=== PATIENT | female | born 1975 | race Caucasian/White ===

== ENCOUNTER 2018-02-11 21:09 | Emergency (ER) | payer MEDICARE, OTHER ==
[~2018-02-11] VITALS: Ht 177.8 cm; Wt 65.0 kg
[2018-02-12 00:19] VITALS: BP 138/63; PULSE 86; RESP 20; TEMP 98.5; O2SAT 98
--- NOTE | 2018-02-12 02:13 | RADRPT ---
EXAM DATE: 02/12/2018 2:05 AM EDT AGE/SEX: 42 years / Female INDICATIONS: Trauma due to fall. CLINICAL DATA: This is the patient's initial encounter. Patient reports that signs and symptoms have been present for 1 day and indicates a pain score of 4/10. MEDICAL/SURGICAL HISTORY: . Cardiovascular disease. Lupus. SSA antibody. Sjogren's. . Mandible . Intestinal. Cochlear implant. COMPARISON: No prior exams available for comparison. FINDINGS: The vertebral bodies are in normal alignment without evidence of compression deformity Bone density is normal for age. Soft tissues are grossly intact. Surgical hardware is seen in the right mandibula r condyle. CONCLUSION: Negative cervical spine series. Electronically signed by: Devon Acosta MD 02/12/2018 2:12 AM EDT
--- NOTE | 2018-02-12 02:17 | RADRPT ---
EXAM DATE: 02/12/2018 2:02 AM EDT AGE/SEX: 42 years / Female INDICATIONS: Trauma due to fall. CLINICAL DATA: This is the patient's initial encounter. Patient reports that signs and symptoms have been present for 1 day and indicates a pain score of 7/10. MEDICAL/SURGICAL HISTORY: Cardiovascular disease. Lupus. Sjogren's antibody. . Mandible. Inte stinal. Cochlear implant. COMPARISON: No prior exams available for comparison. FINDINGS: The vertebral bodies are in normal alignment in the sagittal plane without evidence of compression de formity. There is a minimal levocurvature of the lumbar spine. Bone density is normal for age. Soft tissues are grossly intact. Clips are seen in the right quadrant. There also appears to be a clip in the superior medial right pelvis. CONCLUSION: No acute abnormality seen. Electronically signed by: Devon Acosta MD 02/12/2018 2:16 AM EDT
--- NOTE | 2018-02-12 02:18 | RADRPT ---
EXAM DATE: 02/12/2018 2:06 AM EDT AGE/SEX: 42 years / Female INDICATIONS: Trauma due to fall. CLINICAL DATA: This is the patient's initial encounter. Patient reports that signs and symptoms have been present for 1 day and indicates a pain score of 9/10. MEDICAL/SURGICAL HISTORY: . Cardiovascular disease. Lupus. SSA antibody. Sjogren's. . Mandible . Intestinal. Cochlear implant. COMPARISON: No prior exams available for comparison. FINDINGS: Bony structures are intact and in normal alignment. Joints are intact without dislocation or signifi cant arthropathy. Osseous density is normal. Soft tissues are unremarkable. No radiopaque foreign bodies seen. CONCLUSION: Negative right hip series. Electronically signed by: Devon Acosta MD 02/12/2018 2:17 AM EDT
[2018-02-12] MEDS ORDERED: KETOROLAC TROMETHAMINE 30 MG/ML (IVP) VIAL IV PUSH ONE (03:15)
[2018-02-12] MEDS ORDERED: MORPHINE SULFATE 4 MG/ML INJ IV PUSH ONE (03:15)
[2018-02-12] MEDS ORDERED: MORPHINE SULFATE 2 MG/ML SYRINGE IV PUSH ONE (03:15)
--- NOTE | 2018-02-12 03:24 | PD ---
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 Pain is a pressure and burning in her sacral area , no radiation no migration of pain , there is no obvious hematoma and PT HAS A separate pain that is a spasm-like pain around her shoulders to paracervical PFSH Past Medical History Autoimmune Disease: Yes (LUPUS) Hypertension: Yes Medical other: Yes (VASCULAR REFLUX) Influenza Vaccination: No ?: Not : 0 Past Surgical History Appendectomy: Yes Cholecystectomy: Yes Other Surgery: Yes Social History Alcohol Use: No Tobacco Use: Yes Substance Use: No Allergies-Medications (Allergen,Severity, Reaction): Coded Allergies: Penicillins (Verified Allergy, Unknown, 02/12/18) Reported Meds & Prescriptions Reported Meds & Active Scripts Active Tramadol (Tramadol HCl) 50 Mg Tab 50 Mg PO Q6H PRN Ibuprofen 600 Mg Tab 600 Mg PO Q6H PRN Review of Systems Except as stated in HPI: all other systems reviewed are Neg Physical Exam Narrative GENERAL: hyperpigmented facial rash SKIN: Warm and dry. HEAD: Atraumatic. Normocephalic. EYES: Pupils equal and round. No scleral icterus. No injection or drainage. ENT: No nasal bleeding or discharge. Mucous membranes pink and moist. NECK: Trachea midline. No JVD. CARDIOVASCULAR: Regular rate and rhythm. RESPIRATORY: No accessory muscle use. Clear to auscultation. Breath sounds equal bilaterally. GASTROINTESTINAL: Abdomen soft, non-tender, nondistended. Hepatic and splenic margins not palpable. MUSCULOSKELETAL: Extremities without clubbing, cyanosis, or edema. No obvious deformities. NEUROLOGICAL: Awake and alert. No obvious cranial nerve deficits. Motor grossly within normal limits. Five out of 5 muscle strength in the arms and legs. Normal speech. PSYCHIATRIC: Appropriate mood and affect; insight and judgment normal. Data Data Last Documented VS Vital Signs Date Time Temp Pulse Resp B/P (MAP) Pulse Ox O2 Delivery O2 Flow Rate FiO2 02/12/18 00:19 98.5 86 20 138/63 (88) 98 Orders Orders Spine, Lumbar - Ltd (Ap & Lat) (02/12/18 ) Hip, Uni(Ap&Lat) Wo Ap Pelvis (02/12/18 ) Spine, Cervical Compl([id number]) (02/12/18 ) Ketorolac Inj (Toradol Inj) (02/12/18 03:15) Morphine Inj (Morphine Inj) (02/12/18 03:15) Morphine Inj (Morphine Inj) (02/12/18 03:15) Ed Discharge Order (02/12/18 03:22) [facility] Medical Decision Making Medical Screen Exam Complete: Yes Emergency Medical Condition: Yes Medical Record Reviewed: Yes Differential Diagnosis fall trauma to sacrum to contusion vs fracture and shoulder aching from thoraicic area spasm as well vs lupus flare of muscle aches Narrative Course toradol and xrays and negative imaging and Rx for muscle spasms and d/ c follow up outpt Diagnosis Primary Impression: Sacral contusion Qualified Codes: S30.0XXA - Contusion of lower back and pelvis, initial encounter Patient Instructions: Contusion in Adults (ED), General Instructions Scripts Tramadol (Tramadol) 50 Mg Tab 50 MG PO Q6H Y for PAIN, #10 TAB 0 Refills Prov: Cedrick Cifuentes MD 02/12/18 Ibuprofen (Ibuprofen) 600 Mg Tab 600 MG PO Q6H Y for Pain/Inflammation, #40 TAB 0 Refills Prov: Cedrick Cifuentes MD 02/12/18 Disposition: 01 DISCHARGE HOME Condition: Good Cedrick Cifuentes MD Feb 12, 2018 03:24
[2018-02-12] MEDS ORDERED: IBUP-232 PO (03:31)
[2018-02-12] MEDS ORDERED: TRAM50TA PO (03:32)
== END 2018-02-12 03:50 | disposition home or self-care (01) ==
LOC: NEPE 21:09
DX: S30.0XXA Contusion of lower back and pelvis, initial encounter (principal); M32.9 Systemic lupus erythematosus, unspecified; I10 Essential (primary) hypertension; W01.0XXA Fall on same level from slipping, tripping and stumbling without subsequent striking against object, initial encounter; Y92.59 Other trade areas as the place of occurrence of the external cause; Z72.0 Tobacco use
CPT/HCPCS: 72050; 72100; 73502; 96374; 96375; 99284; J1885; J2270